=== PATIENT | male | born 1990 | race Hispanic/Latino ===

== ENCOUNTER 2022-09-24 01:06 | Emergency (ER) | payer BC ==
[2022-09-24 01:51] VITALS: BP 155/87
== END 2022-09-24 02:07 | disposition home or self-care (01) ==
LOC: EDH 01:06
DX: S63.632A Sprain of interphalangeal joint of right middle finger, initial encounter (principal); W22.8XXA Striking against or struck by other objects, initial encounter; Y93.89 Activity, other specified; Y92.89 Other specified places as the place of occurrence of the external cause; Y99.8 Other external cause status
CPT/HCPCS: 29130; 73140